=== PATIENT | female | born 1955 | race Caucasian/White ===

== ENCOUNTER 2021-12-25 12:04 | Outpatient (CLI) | payer OTHER | END 2021-12-25 12:07 | disposition home or self-care (01) | LOC: SONOGRAMA 12:04 | PROVIDERS: ATTEND Pathology Anatomic Pathology | DX: D34 Benign neoplasm of thyroid gland (principal); E04.9 Nontoxic goiter, unspecified; E04.1 Nontoxic single thyroid nodule ==